=== PATIENT | male | born 1955 | race Caucasian/White ===

== ENCOUNTER → 2023-06-21 10:19 | Outpatient (CLI) | payer OTHER, SELFPAY ==
[2023-06-21 11:35] LABS: Alanine Aminotransferase 23 IU/L (<50); Albumin 4.3 g/dL (3.5-5.0); Albumin Globulin Ratio 1.4 (1.0-2.8); Alkaline Phosphatase 78 U/L (38-126); Aspartate Aminotransferase 30 IU/L (17-59); BUN Creatinine Ratio 17.7 (6-22); Bilirubin Total 0.7 mg/dL (0.2-1.3); Blood Urea Nitrogen 14 mg/dL (9-20); Carbon Dioxide 25 mmol/L (22-32); Chloride 108 mmol/L (98-107); Estimated Glomerular Filt Rate > 60 mL/min (>60); Globulin 3.1 g/dL (1.7-4.1); Glucose 96 mg/dL (80-110); HEMOLYSIS < 15 (0-50); Potassium 4.2 mmol/L (3.4-5.1); Sodium 138 mmol/L (137-145); Total Protein 7.4 g/dL (6.3-8.2)
== END ==
PROVIDERS: Referring Provider Family Medicine; Visit Provider Family Medicine
DX: R74.01 Elevation of levels of liver transaminase levels (principal)
CPT/HCPCS: 36415; 80053

== ENCOUNTER → 2023-09-17 09:50 | Outpatient (CLI) | payer OTHER, SELFPAY ==
[2023-09-17 10:59] LABS: Cholesterol 179 mg/dL (140-199); HDL Cholesterol 58 mg/dL (40-60); LDL Cholesterol Calculated 104 mg/dL (<100); Triglycerides 83 mg/dL (35-150)
[2023-09-17 11:27] LABS: Prostate Specific Antigen 1.09 ng/mL (0.10-4.00)
== END ==
PROVIDERS: PCP Family Medicine; Referring Provider Family Medicine; Visit Provider Family Medicine
DX: Z00.00 Encounter for general adult medical examination without abnormal findings (principal); N52.9 Male erectile dysfunction, unspecified; Z86.19 Personal history of other infectious and parasitic diseases; G47.9 Sleep disorder, unspecified; Z86.010 Personal history of colon polyps; Z76.89 Persons encountering health services in other specified circumstances; Z87.891 Personal history of nicotine dependence
CPT/HCPCS: 36415; 80061; 84153

== ENCOUNTER → 2023-10-04 11:21 | Outpatient (CLI) | payer OTHER, SELFPAY ==
--- NOTE | 2023-10-04 11:22 | DI.US.S_ITS ---
PROCEDURE: US ABD AORTA ANEURYSM SCREEN INDICATIONS: Personal history of nicotine dependence TECHNIQUE: Real time scanning was performed of the aorta and iliac arteries, with image documentation. COMPARISON: None. FINDINGS: Aorta: Proximal aortic diameter measures 2.6 x 2.5 cm. Mid-aorta measures 1.9 x 2.0 cm. Distal aortic diameter is 1.8 x 1.8 cm. Iliac arteries: Right common iliac artery measures 1.3 x 1.3 cm. Left common iliac artery measures 1.2 x 1.2 cm. IMPRESSION: Minimal ectasia of the proximal aorta. Dictated by: Barbara Clarke M.D. on 10/04/2023 at 16:04 Approved by: Barbara Clarke M.D. on 10/04/2023 at 16:05
== END ==
PROVIDERS: PCP Family Medicine; Referring Provider Family Medicine; Visit Provider Family Medicine
DX: Z13.6 Encounter for screening for cardiovascular disorders (principal); Z87.891 Personal history of nicotine dependence; G47.9 Sleep disorder, unspecified; N52.9 Male erectile dysfunction, unspecified; Z86.010 Personal history of colon polyps; Z86.19 Personal history of other infectious and parasitic diseases; Z76.89 Persons encountering health services in other specified circumstances
CPT/HCPCS: 76706

== ENCOUNTER → 2024-09-11 09:52 | Outpatient (CLI) | payer MEDICARE, SELFPAY ==
--- NOTE | 2024-09-11 09:54 | DI.RAD.S_ITS ---
PROCEDURE: XR SHOULDER RT MIN 2V INDICATIONS: chronic right shoulder pain with h/o rotator cuff surgery TECHNIQUE: 3 views of the shoulder were acquired. COMPARISON: None. FINDINGS: Bones: No fractures or dislocations. Mild acromioclavicular joint degeneration No suspicious bony lesions. Visualized ribs appear intact. Soft tissues: No suspicious soft tissue calcifications. IMPRESSION: No acute osseous abnormalities. Mild acromioclavicular joint degeneration. Dictated by: Hood Pillai M.D. on 09/11/2024 at 13:20 Approved by: Hood Pillai M.D. on 09/11/2024 at 13:20
== END ==
PROVIDERS: PCP Family Medicine; Referring Provider Family Medicine; Visit Provider Family Medicine
DX: M25.511 Pain in right shoulder (principal); G89.29 Other chronic pain; Z98.890 Other specified postprocedural states; M19.011 Primary osteoarthritis, right shoulder
CPT/HCPCS: 73030

== ENCOUNTER → 2024-09-20 17:17 | Outpatient (CLI) | payer MEDICARE, SELFPAY ==
--- NOTE | 2024-09-20 17:22 | DI.MRI.S_ITS ---
PROCEDURE: MR SHOULDER RT WO CON INDICATIONS: chronic right shoulder pain with h/o rotator cuff surgery TECHNIQUE: Noncontrast oblique coronal T2 fast spin echo with fat saturation, oblique sagittal T1 spin echo and T2 fast spin echo with fat saturation, axial T1 spin echo and T2 fast spin echo with fat saturation through the shoulder. COMPARISON: None. FINDINGS: Image quality: Excellent. Rotator cuff: There is full-thickness rupture involving mid fibers of distal supraspinatus approximately 1.6 cm from its insertion on greater tuberosity and up to 1.1 cm medial retraction of torn tendon fibers to the level of acromion. Fluid- filled gap measures 8 mm in AP dimension. Moderate grade articular surface partial- thickness tear involving rest of the supraspinatus tendon is seen extending to musculotendinous junction. Low to moderate grade articular surface partial-thickness tear involving distal infraspinatus is also seen extending to musculotendinous junction. Low- grade intrasubstance partial-thickness tear involving distal subscapularis. Sagittal images demonstrate mild to moderate supraspinatus muscle atrophy. Bones and bursae: No bone marrow contusions or fractures. Moderate acromioclavicular joint osteoarthritic changes are seen with joint space narrowing and downward osteophyte formation depressing the musculotendinous junction of supraspinatus. Type 2 acromion without an os acromiale. Small to moderate amount of joint effusion and subacromial subdeltoid bursal fluid is seen, no loose bodies. Capsule and soft tissues: There is fraying of superior anterior glenoid labrum with T2 hyperintense signal consistent with superior anterior labral tear. Mild proximal intra-articular portion of long head of biceps tendinosis is seen. IMPRESSION: 1. Moderate grade articular surface partial-thickness tear involving distal supraspinatus at its insertion on the humeral head extending to musculotendinous junction. Focal full-thickness rupture involving mid fibers of supraspinatus approximately 1.6 cm from its insertion on humeral head with up to 1.1 cm medial retraction of torn tendon fibers and fluid-filled gap measures 8 mm in AP dimension. [id number] supraspinatus muscle atrophy. 2. Low to moderate grade articular surface partial-thickness tear involving distal infraspinatus extending to musculotendinous junction. Low-grade intrasubstance partial-thickness tear involving distal subscapularis. 3. Moderate acromioclavicular joint osteoarthritis. No fracture or dislocation. Small to moderate amount of joint fluid and subacromial subdeltoid bursal fluid, no loose bodies. 4. Suggestion of superior anterior glenoid labral tear. 5. Proximal intra-articular portion of long head of biceps tendinosis. Dictated by: Randolph Chung M.D. on 09/22/2024 at 0:05 Approved by: Randolph Chung M.D. on 09/22/2024 at 0:09
== END ==
PROVIDERS: PCP Family Medicine; Referring Provider Family Medicine; Visit Provider Family Medicine
DX: M75.121 Complete rotator cuff tear or rupture of right shoulder, not specified as traumatic (principal); M75.111 Incomplete rotator cuff tear or rupture of right shoulder, not specified as traumatic; M62.511 Muscle wasting and atrophy, not elsewhere classified, right shoulder; M19.011 Primary osteoarthritis, right shoulder; M25.411 Effusion, right shoulder; M25.511 Pain in right shoulder; G89.29 Other chronic pain; Z98.890 Other specified postprocedural states
CPT/HCPCS: 73221

== ENCOUNTER → 2024-11-22 08:57 | Outpatient (CLI) | payer MEDICARE, SELFPAY ==
[2024-11-22 09:46] LABS: Hematocrit 42.5 % (41-53); Hemoglobin 14.9 g/dL (13.5-17.5); Mean Corpuscular HGB Conc 35.0 % (30-36); Mean Corpuscular Hemoglobin 32.2 PG (26-34); Mean Corpuscular Volume 91.9 fL (80-100); Platelet Count 196 X10^3/uL (150-400)
[2024-11-22 10:21] LABS: Alanine Aminotransferase 29 IU/L (<50); Albumin 4.7 g/dL (3.5-5.0); Albumin Globulin Ratio 2.0 (1.0-2.8); Alkaline Phosphatase 75 U/L (38-126); Blood Urea Nitrogen 15 mg/dL (9-20); Calcium 9.0 mg/dL (8.4-10.2); Carbon Dioxide 23 mmol/L (22-32); Chloride 104 mmol/L (98-107); Cholesterol 185 mg/dL (140-199); Estimated Glomerular Filt Rate > 60 mL/min (>60); Globulin 2.4 g/dL (1.7-4.1); Glucose 102 mg/dL (70-99); HDL Cholesterol 56 mg/dL (40-60); HEMOLYSIS < 15 (0-50); Potassium 4.0 mmol/L (3.4-5.1); Sodium 138 mmol/L (137-145); Total Protein 7.1 g/dL (6.3-8.2); Triglycerides 80 mg/dL (35-150)
[2024-11-22 11:28] LABS: Microalbumi Creatinin Ratio Ur 8.0 ug/mg CR (<30)
== END ==
PROVIDERS: PCP Family Medicine; Referring Provider Family Medicine; Visit Provider Family Medicine
DX: E78.00 Pure hypercholesterolemia, unspecified (principal); Z12.5 Encounter for screening for malignant neoplasm of prostate; Z86.19 Personal history of other infectious and parasitic diseases; I77.811 Abdominal aortic ectasia; I10 Essential (primary) hypertension
CPT/HCPCS: 36415; 80053; 80061; 82043; 82570; 85027; G0103